=== PATIENT | male | born 1980 | race Caucasian/White ===

== ENCOUNTER 2017-03-02 09:06 | Emergency (ER) | payer OTHER ==
[~2017-03-02] VITALS: Ht 182.9 cm; Wt 93.0 kg
--- NOTE | 2017-03-02 09:49 | PHYS DOC ---
Past History Past Medical History: No Pertinent History Past Surgical History: Other Smoking: Non-smoker Alcohol Use: Rarely Drug Use: None Adult General Chief Complaint Chief Complaint: INSECT BITE HPI HPI This 36-year-old gentleman presents with a history of getting a tick bite. He got the tick bite about 2 weeks ago. He is not sure where he got tick may have been [place] or it may have been back here in [place] area he's not sure In the past several days he developed some erythema just been patchy around the area of bite. He has 2 other small areas of erythema. Both appear to be healing insect bites and did not appear red or acutely inflamed. Review of Systems Review of Systems Constitutional: Denies fever or chills [] Eyes: Denies change in visual acuity, redness, or eye pain [] HENT: Denies nasal congestion or sore throat [] Respiratory: Denies cough or shortness of breath [] Cardiovascular: No additional information not addressed in HPI [] GI: Denies abdominal pain, nausea, vomiting, bloody stools or diarrhea [] : Denies dysuria or hematuria [] Musculoskeletal: Denies back pain or joint pain [] Integument see history of present illness] Neurologic: Denies headache, focal weakness or sensory changes [] Endocrine: Denies polyuria or polydipsia [] Allergies Allergies Allergies Coded Allergies Type Severity Reaction Last Updated Verified No Known Drug Allergies 05/19/16 No Physical Exam Physical Exam Constitutional: Well developed, well nourished, no acute distress, non-toxic appearance. [] HENT: Normocephalic, atraumatic, bilateral external ears normal, oropharynx moist, no oral exudates, nose normal. [] Eyes: PERRLA, EOMI, conjunctiva normal, no discharge. [] Neck: Normal range of motion, no tenderness, supple, no stridor. [] Cardiovascular:Heart rate regular rhythm, no murmur [] Lungs & Thorax: Bilateral breath sounds clear to auscultation [] Abdomen: Bowel sounds normal, soft, no tenderness, no masses, no pulsatile masses. [] Skin: There is an area of that he had identifies as being a tick bite on the inner aspect of his right lower leg. There is a very tiny crusted lesion in the center. There is some slight erythema measuring about 2 cm x 1 cm but it does not appear acutely inflamed indurated or warm There are 2 other small areas measuring less than a centimeter both inferior and superior to this lesion that again neither appear acutely inflamed indurated or warm Back: No tenderness, no CVA tenderness. [] Extremities: No tenderness, no cyanosis, no clubbing, ROM intact, no edema. [] Neurologic: Alert and oriented X 3, normal motor function, normal sensory function, no focal deficits noted. [] Psychologic: Affect normal, judgement normal, mood normal. [] EKG EKG [] Radiology/Procedures Radiology/Procedures [] Impressions: Tick bite with rash Course & Med Decision Making Course & Med Decision Making Pertinent Labs and Imaging studies reviewed. (See chart for details) Titers were drawn for [place] and [place] spotted fever Was explained to the patient will place him on doxycycline but he needs to follow up with the doctor in the for results of the tests we have performed [] Dragon Disclaimer Dragon Disclaimer This chart was dictated in whole or in part using Voice Recognition software in a busy, high-work load, and often noisy Emergency Department environment. It may contain unintended and wholly unrecognized errors or omissions. Departure Departure: Referrals: JOAQUIN CRAFT MD (PCP) DARON STARKEY MD March 02, 2017 09:49
[2017-03-02] MEDS ORDERED: DOXY50CA PO (09:51)
[2017-03-02 10:03] VITALS: BP 147/62
[2017-03-04 23:09] LABS: ROCK MTN SF IGG Negative (Negative); ROCKY MTN SF IGM 1.01 index (0.00-0.89)
== END 2017-03-02 09:58 | disposition home or self-care (01) ==
LOC: ER 09:06
DX: S80.861A Insect bite (nonvenomous), right lower leg, initial encounter (principal); A77.0 Spotted fever due to Rickettsia rickettsii; W57.XXXA Bitten or stung by nonvenomous insect and other nonvenomous arthropods, initial encounter; Y93.89 Activity, other specified; Y92.89 Other specified places as the place of occurrence of the external cause; Y99.8 Other external cause status
CPT/HCPCS: 36415; 86757; 99284